=== PATIENT | female | born 1965 | race Caucasian/White ===

== ENCOUNTER 2016-06-04 13:09 | Emergency (ER) | payer MEDICAID ==
[~2016-06-04] VITALS: Ht 157.5 cm; Wt 76.0 kg
[~2016-06-04 13:09] MED LIST: AZIT250T94 PO; CARB100T2 PO; NAPR-260 PO
[2016-06-04 13:14] VITALS: Ht 157.5 cm; Wt 76.0 kg
[2016-06-04] MEDS ORDERED: AMO500 PO (14:33)
[2016-06-04] MEDS ORDERED: SLF10OP15 RIGHT EYE (14:33)
[2016-06-04] MEDS ORDERED: IBUP-1542 PO (14:33)
[2016-06-04] MEDS ORDERED: METF500T4 PO (14:33)
--- NOTE | 2016-06-04 15:44 | ERD ---
ER Documentation Chief Complaint Date/Time DATE: 06/04/16 TIME: 15:[address] x 2 days HPI Patient is a 50-year-old female with diabetes who presents with a sore throat. She has had sore throat for the past 7 days. She has had a decreased voice and pain with swallowing. She has fever. She says that her right eye is red as well. She also says "I have flu and cough". She has diabetes but is not on any diabetes medications at this time and does not have a primary doctor. She tried one dose of ampicillin that she had at home. ROS All systems reviewed and are negative except as per history of present illness. Medications Home Meds Active Scripts Metformin* (Glucophage*) 500 Mg Tab, 500 MG PO BID, #60 TAB Prov:MARY VELA MD 06/04/16 Ibuprofen* (Motrin*) 600 Mg Tab, 600 MG PO Q6H Y for PAIN AND OR ELEVATED TEMP, #30 TAB Prov:MARY VELA MD 06/04/16 Sulfacetamide Sodium* (Sulfacetamide Sodium*) 10%-15 Ml Opht Drops, 1 DROP RIGHT EYE Q2H for 7 Days, EA Prov:MARY VELA MD 06/04/16 Amoxicillin* (Amoxicillin*) 500 Mg Cap, 500 MG PO TID for 10 Days, CAP Prov:MARY VELA MD 06/04/16 Carbamazepine* (Carbamazepine*) 100 Mg Tab.chew, 100 MG PO BID, #14 TAB.CHEW Prov:JESSICA TENORIO DO 08/30/15 Naproxen* (Naprosyn*) 500 Mg Tablet, 500 MG PO BID Y for PAIN AND/OR INFLAMMATION, #30 TAB Prov:POOJA MIGUEL NP 08/30/15 Azithromycin* (Zithromax*) 250 Mg Tablet, 250 MG PO .ZPACK DIRECTED, #6 TAB TAKE 500 MG (2 TABS) THE FIRST DAY THEN 250 MG (1 TAB) DAYS 2-5 Prov:POOJA MIGUEL NP 08/30/15 Allergies Allergies: Coded Allergies: No Known Allergy (Unverified , 08/30/15) PMhx/Soc History of Surgery: Yes (cataract removal) Anesthesia Reaction: No Hx Neurological Disorder: No Hx Respiratory Disorders: No Hx Cardiac Disorders: No Hx Psychiatric Problems: No Hx Miscellaneous Medical Probl: Yes (dm) Hx Alcohol Use: No Hx Substance Use: No Hx Tobacco Use: No FmHx Family History: diabetes Physical Exam Vitals Vital Signs Date Time Temp Pulse Resp B/P Pulse Ox O2 Delivery O2 Flow Rate FiO2 06/04/16 13:14 98.1 77 20 159/77 99 Physical Exam Const: No acute distress Head: Atraumatic Eyes: Normal Conjunctiva ENT: Erythema to the oropharynx, no stridor over the neck, no swelling Neck: Full range of motion..~ No meningismus. Resp: Clear to auscultation bilaterally Cardio: Regular rate and rhythm, no murmurs Abd: Soft, non tender, non distended. Normal bowel sounds Skin: No petechiae or rashes Back: No midline or flank tenderness Ext: No cyanosis, or edema Neur: Awake and alert Psych: Normal Mood and Affect Procedures/MDM Patient is a 50-year-old female who presents with what appears to be an acute pharyngitis. At this point I doubt epiglottitis, retropharyngeal abscess, or peritonsillar abscess. I will treat her with amoxicillin given the length of symptoms. The patient also is requesting prescription for diabetes medications. I will start her on metformin 500 mg twice daily but she will need to follow-up closely with the local clinics within 24-48 hours for reevaluation. At this point she is otherwise well-appearing with stable vital signs and I believe outpatient management is appropriate. I doubt serious bacterial infection and I do not believe she requires further workup or admission to the hospital at this time. Departure Diagnosis: Primary Impression: Diabetes Diabetes mellitus type: type 2 Diabetes mellitus complication status: with unspecified complications Diabetes mellitus retirement insulin use: without retirement use Qualified Code: E11.8 - Type 2 diabetes mellitus with complication, without long-term current use of insulin Additional Impressions: Conjunctivitis Conjunctivitis type: acute Acute conjunctivitis type: bacterial Laterality : right Qualified Code: H10.31 - Acute bacterial conjunctivitis of right eye Pharyngitis Pharyngitis/tonsillitis etiology: unspecified etiology Qualified Code: J02.9 - Pharyngitis, unspecified etiology Sore throat Condition: Fair Patient Instructions: Self-Care for Sore Throats, Pharyngitis, Strep (Presumed) [facility] Usted se jung hecho un examen mdico de control que le indica que no est en sherin condicin que requiera tratamiento urgente en el Departamento de Emergencia. Un estudio ms profundo y el tratamiento de hernandez condicin pueden esperar sin ningn riesgo hasta que usted sea atendida/o en el consultorio de hernandez mdico o sherin cl darrin. Es responsabilidad suya arreglar sherin tammy para el seguimiento del [place]. MANEJO DE CONDICIONES NO URGENTES EN EL FUTURO 1) Si usted tiene un mdico de atencin primaria: Usted debera llamar a hernandez mdico de atencin primaria antes de venir al departamento de emergencia. Despus de las horas de consultorio, hernandez doctor o hernandez asociado/a est disponible por telfono. El mdico o enfermero de paul en el servicio telefnico puede asesorarle por nico medio para atender el problema, o [place] contrario se puede programar sherin tammy. 2) Si usted no tiene un mdico de atencin primaria: Llame al mdico o clnica de referencia que aparece abajo nakita las horas de consultorio para hacer sherin tammy para que le vean. CLINICAS: [facility] [phone] [facility] [phone] [facility] [phone] [facility] [facility] [phone] [place] [phone] [facility]. [phone] [address] Additional Instructions: Llame al doctor MAANA y zully sherin TAMMY PARA DENTRO DE 1-2 [place].Dgale a la secretaria que nosotros le instruimos hacer esta tammy.Avise o llame si hernandez condicin se empeora antes de la tammy. Regresa aqui si peor o no mejor. MARY VELA MD Jun 04, 2016 15:44
== END 2016-06-04 14:38 | disposition home or self-care (01) ==
LOC: E/R 13:09
DX: E11.8 Type 2 diabetes mellitus with unspecified complications (principal); H10.31 Unspecified acute conjunctivitis, right eye; Z79.84 Long term (current) use of oral hypoglycemic drugs
CPT/HCPCS: 99284